=== PATIENT | female | born 1955 ===

== ENCOUNTER 2016-12-12 14:50 | Emergency (ER) | payer BC ==
--- NOTE | 2016-12-12 16:29 | UC ---
Skin Complaint HPI - HPI Summary HPI Summary: TWO WEEKS OF ITCHY RASH DEVELOPING ON MIDRIFF, AND LEGS. BEGAN ONE SMALL SPOT , NOW SPREADING. HAD TICKBITE, NOT ENGORGED, THREE WEEKS AGO. NO FEVER. HAS HAD SOME HIP PAIN, AND SORE FEET, BUT NO GENERALIZED MUSCLE ACHES. ALSO BEING TREATED FOR TINEA CURRENTLY. RECENTLY MOVED HERE FROM [place]. NO LOCAL PCP. - History of Current Complaint Chief Complaint: UCRas Time Seen by Provider: 12/12/16 15:38 Stated Complaint: RASHES Hx Obtained From: Patient, Family/Substitute Nurse ?: Yes Onset/Duration: Gradual Onset, Lasting Weeks, Still Present Skin Exposure Onset/Duration: Weeks Ago Timing: Constant Onset Severity: Mild Current Severity: Mild Location: Diffuse - ABDOMEN, BACK AND THIGHS Character: Pruritus, Redness Alleviating: Nothing Associated Signs & Symptoms: Positive: Rash. Negative: Nausea, Vomiting, Fever , Chills, Cough, Wheezing, Tenderness, Red Streaks Related History: Possible Reaction to: Insect, Possible Reaction to: Environmental Exposure - Allergy/Home Medications Allergies/Adverse Reactions: Allergies Allergy/AdvReac Type Severity Reaction Status Date / Time Sulfa Antibiotics Allergy Rash And Verified 12/12/16 15:32 Itching Home Medications: Home Medications Zolpidem TAB* [Ambien TAB*] 5 mg PO BEDTIME PRN 12/12/16 [History Confirmed ] Review of Systems Constitutional: Negative Skin: Rash Eyes: Negative ENT: Negative Respiratory: Negative Cardiovascular: Negative Gastrointestinal: Negative Genitourinary: Negative Motor: Negative Neurovascular: Negative Musculoskeletal: Negative Neurological: Negative Psychological: Negative All Other Systems Reviewed And Are Negative: Yes PMH/Surg Hx/FS Hx/Imm Hx Previously Healthy: Yes - Surgical History Surgical History: None - Family History Known Family History: Positive: Other - HAD LYME - Social History Occupation: Retired Lives: With Family Alcohol Use: None Substance Use Type: None Smoking Status (MU): Never Smoked Tobacco Physical Exam Triage Information Reviewed: Yes Appearance: Well-Appearing, No Pain Distress, Well-Nourished Vital Signs: Initial Vital Signs Temp 98.8 F 12/12/16 15:27 Pulse 104 12/12/16 15:27 Resp 20 12/12/16 15:27 BP 138/76 12/12/16 15:27 Pulse Ox 100 12/12/16 15:27 Vital Signs Reviewed: Yes Eye Exam: Normal ENT Exam: Normal ENT: Positive: Normal ENT inspection, Hearing grossly normal, TMs normal Dental Exam: Normal Neck exam: Normal Neck: Positive: Supple, Nontender, No Lymphadenopathy Respiratory Exam: Normal Respiratory: Positive: Chest non-tender, Lungs clear, Normal breath sounds, No respiratory distress, No accessory muscle use Cardiovascular Exam: Normal Cardiovascular: Positive: RRR, No Murmur Abdominal Exam: Normal Abdomen Description: Positive: Nontender, No Organomegaly Musculoskeletal Exam: Normal Musculoskeletal: Positive: Strength Intact, ROM Intact Neurological Exam: Normal Psychological Exam: Normal Psychological: Positive: Normal Response To Family Skin: Positive: rashes - Diffuse small, erythematous, nondescript papuleS, often excoriated and tipped with hemorrhagic crusts; mostly on torso, thighs Course/Dx - Differential Diagnoses - Skin Complaint Differential Diagnoses: Cellulitis, Systemic Illness, Tick Born Illness, Tinea - Diagnoses Provider Diagnoses: SCABIES Discharge - Discharge Plan Condition: Stable Disposition: HOME Prescriptions: Permethrin 5% CREAM* 1 applic TOPICAL SEE INSTRUCTIONS #1 tube Patient Education Materials: Scabies (ED) Referrals: [facility] [Outside] Vicki Chaudhry [Medical Doctor] - Images Front/Back of Body, Lg (Trego): 1 - Diffuse small, erythematous, nondescript papuleS, often excoriated and tipped with hemorrhagic crusts; mostly on torso, thighs 2 - Diffuse small, erythematous, nondescript papuleS, often excoriated and tipped with hemorrhagic crusts; mostly on torso, thighs
== END 2016-12-12 16:25 | disposition home or self-care (01) ==
LOC: UCEAST 14:50
DX: B86 Scabies (principal)
CPT/HCPCS: 99202; G0463